=== PATIENT | female | born 1990 | race Asian ===

== ENCOUNTER 2017-01-13 23:22 | Emergency (ER) | payer OTHER ==
[2017-01-13 23:34] VITALS: TEMP 98.4; O2SAT 97
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
[2017-01-14] MEDS ORDERED: TDAP ADULT 0.5 ML INJ (BOOSTRIX) IM ONE (00:03)
[2017-01-14] MEDS ORDERED: DOXYCYCLINE HYCLATE 100 MG CAP/TAB PO ONE (00:17)
[2017-01-14 01:12] VITALS: BP 117/79; PULSE 71; RESP 20
== END 2017-01-14 01:15 | disposition home or self-care (01) ==
DX: S01.511A Laceration without foreign body of lip, initial encounter (principal); Z23 Encounter for immunization; Y04.1XXA Assault by human bite, initial encounter; Y92.214 College as the place of occurrence of the external cause